=== PATIENT | male | born 1960 | race Caucasian/White ===

== ENCOUNTER 2017-06-18 16:46 | Emergency (ER) | payer OTHER ==
[~2017-06-18] VITALS: Ht 175.3 cm; Wt 95.3 kg
[2017-06-18 16:56] VITALS: BP 153/87; PULSE 77; RESP 16; TEMP 98.1; O2SAT 99
[2017-06-18] MEDS ORDERED: NOVOLOGP2 SQ (17:22)
[2017-06-18] MEDS ORDERED: LANTUS2P SQ (17:22)
[2017-06-18] MEDS ORDERED: METF1000 PO (17:22)
[2017-06-18] MEDS ORDERED: ROBA500T PO (18:08)
--- NOTE | 2017-06-18 18:09 | PD ---
HPI Chief Complaint: Back/ Neck Pain or Injury Time Seen by Provider: 17:34 Travel History International Travel<30 days: No Contact w/Intl Traveler<30days: No Traveled to known affect area: No History of Present Illness HPI 56-year-old male presents to the emergency department complaining of left groin pain after he slipped out of the shower this evening. States he was getting out shower and his leg slipped out and told his groin. Denies head or neck trauma. Denies loss of consciousness, dizziness, headache. Patient states he is able to walk but it is very painful. Says that any movement of the groin causes excruciating, nonradiating pain and requests pain medication today. Patient denies numbness or tingling of the extremity. Denies excessive swelling or ecchymosis. States he took Motrin 800 mg and had mild relief for 2 hours but did not last long. PFSH Past Medical History Diabetes: Yes (type 2) Patient Takes Glucophage: Yes Influenza Vaccination: Yes Past Surgical History Surgical History: No Previous Surgery Social History Alcohol Use: No Tobacco Use: Yes (PACK PER WEEK) Substance Use: No Allergies-Medications (Allergen,Severity, Reaction): Coded Allergies: No Known Allergies (Unverified , 06/18/17) Reported Meds & Prescriptions Reported Meds & Active Scripts Active Robaxin (Methocarbamol) 500 Mg Tab 500 Mg PO TID 5 Days Reported Lantus Inj (Insulin Glargine) 1,000 Unit/10 Ml Vial 10 Units SQ HS Novolog Inj (Insulin Aspart) 1,000 Unit/10 Ml Vial 0 SQ DIRECTED Sliding Scale as directed. Metformin (Metformin HCl) 1,000 Mg Tab 1,000 Mg PO BIDPC Review of Systems Except as stated in HPI: all other systems reviewed are Neg Physical Exam Narrative GENERAL: Well-nourished, well-developed patient. SKIN: Focused skin assessment warm/dry. HEAD: Normocephalic. EYES: No scleral icterus. No injection or drainage. NECK: Supple, trachea midline. No JVD or lymphadenopathy. CARDIOVASCULAR: Regular rate and rhythm without murmurs, gallops, or rubs. RESPIRATORY: Breath sounds equal bilaterally. No accessory muscle use. MUSCULOSKELETAL: No cyanosis, or edema. Left groin evaluated with a male dispatcher relay. No ecchymosis, bulging. TTP to groin area without lymphadenopathy BACK: Nontender without obvious deformity. No CVA tenderness. Data Data Last Documented VS Vital Signs Date Time Temp Pulse Resp B/P (MAP) Pulse Ox O2 Delivery O2 Flow Rate FiO2 06/18/17 19:43 99 06/18/17 19:42 18 06/18/17 16:56 98.1 77 153/87 (109) Orders Orders Orphenadrine Inj (Norflex Inj) (06/18/17 18:15) Ed Discharge Order (06/18/17 18:15) Acetamin-Hydrocod 325-5 Mg ([place] 5-325 (06/18/17 18:45) MDM Medical Decision Making Medical Screen Exam Complete: Yes Emergency Medical Condition: Yes Differential Diagnosis Left groin strain, sprain, rupture Narrative Course 56-year-old male presents to the emergency department complaining of left groin pain after he slipped out of the shower this evening. States he was getting out shower and his leg slipped out and told his groin. Denies head or neck trauma. Denies loss of consciousness, dizziness, headache. Patient states he is able to walk but it is very painful. Says that any movement of the groin causes excruciating, nonradiating pain and requests pain medication today. Patient denies numbness or tingling of the extremity. Denies excessive swelling or ecchymosis. States he took Motrin 800 mg and had mild relief for 2 hours but did not last long. Vital signs stable Physical exam findings consistent with a groin pull I reviewed [facility] and it appears as if he received a hydrocodone prescription on May 25. I asked the patient she had received any pain medication recently and he said no. Patient became very agitated in the emergency department today after informing the patient he will not receive narcotic pain medication. Hydrocodone admission the emergency department. I recommended he follow up with his primary care physician and consider orthopedics for his groin pain. Advised of the usual course of this injury. Reassured patient. Return to the emergency department for worsening or persistent symptoms. Diagnosis Primary Impression: Sprain of groin Qualified Codes: S33.8XXA - Sprain of other parts of lumbar spine and pelvis, initial encounter Referrals: Primary Care Physician Additional Instructions: Use ice or heat for symptom relief. Elevate the joint above the heart to reduce swelling. If symptoms persist or worsen, return to the emergency department. Follow up with your primary care physician within 2 days. Scripts Methocarbamol (Robaxin) 500 Mg Tab 500 MG PO TID for Muscle Spasm for 5 Days, TAB 0 Refills Prov: Hetal Chi 06/18/17 Disposition: 01 DISCHARGE HOME Condition: Stable Hetal Chi Jun 18, 2017 18:09
[2017-06-18] MEDS ORDERED: ORPHENADRINE INJ 60 MG/2 ML AMP IM ONE (18:15)
[2017-06-18] MEDS ORDERED: ACETAMINOPHEN/HYDROcodone 325 MG/5 MG TAB PO ONE (18:45)
[2017-06-18 19:42] VITALS: RESP 18
== END 2017-06-18 19:43 | disposition home or self-care (01) ==
LOC: PHEFT 16:46
DX: S33.8XXA Sprain of other parts of lumbar spine and pelvis, initial encounter (principal); E11.9 Type 2 diabetes mellitus without complications; F17.200 Nicotine dependence, unspecified, uncomplicated; W18.2XXA Fall in (into) shower or empty bathtub, initial encounter; Z79.4 Long term (current) use of insulin; Z79.899 Other long term (current) drug therapy
CPT/HCPCS: 96372; 99284; J2360

== ENCOUNTER 2017-12-17 17:39 | Emergency (ER) | payer OTHER ==
[~2017-12-17] VITALS: Ht 175.3 cm; Wt 87.0 kg
[~2017-12-17 17:39] MED LIST: LANTUS2P SQ; METF1000 PO; NOVOLOGP2 SQ; ROBA500T PO
[2017-12-17 18:00] VITALS: BP 131/74; PULSE 86; RESP 20; TEMP 97.6; O2SAT 98
[2017-12-17 19:46] VITALS: BP 104/70; PULSE 78; RESP 16
[2017-12-17 20:17] LABS: BLOOD, URINE NEG (NEG); GLUCOSE,URINE NEG (NEG); KETONE, URINE NEG (NEG); NITRITE,URINE NEG (NEG); PH, URINE 5.5 (5.0-8.5); URINE COLOR YELLOW (YELLW/STRAW); URINE LEUKOCYTE ESTERASE NEG (NEG)
[2017-12-17 20:18] LABS: AUTOMATED NEUTROPHIL # 11.5 TH/MM3 (1.8-7.7); BASOPHIL # 0.1 TH/MM3 (0-0.2); BASOPHIL % 0.9 % (0.0-2.0); EOSINOPHIL % 0.3 % (0.0-4.0); HEMATOCRIT 47.8 % (39.0-51.0); HEMOGLOBIN 16.5 GM/DL (13.0-17.0); LYMPH % 13.5 % (9.0-44.0); MEAN CELL VOLUME 90.9 FL (80.0-100.0); MEAN CORPUSCULAR HEMOGLOBIN 31.4 PG (27.0-34.0); MEAN CORPUSCULAR HGB CONC 34.5 % (32.0-36.0); MEAN PLATELET VOLUME 8.7 FL (7.0-11.0); MONO % 6.4 % (0.0-8.0); MONOCYTE # 0.9 TH/MM3 (0-0.9); NEUT % 78.9 % (16.0-70.0); PLATELET COUNT 291 TH/MM3 (150-450); RED BLOOD COUNT 5.26 MIL/MM3 (4.50-5.90); RED CELL DISTRIBUTION WIDTH 12.8 % (11.6-17.2); WHITE BLOOD COUNT 14.5 TH/MM3 (4.0-11.0)
[2017-12-17 20:23] LABS: BILIRUBIN, URINE NEG (NEG)
[2017-12-17 20:24] LABS: RBC, URINE 0-2 /hpf (0-3); SQUAMOUS EPITHELIAL CELL URINE 0-5 /hpf (0-5); WBC, URINE 0-2 /hpf (0-5)
[2017-12-17 20:32] LABS: CHLORIDE 98 MEQ/L (98-107); SODIUM (NA) 135 MEQ/L (136-145)
[2017-12-17 20:37] LABS: ALBUMIN 5.4 GM/DL (3.4-5.0); BICARBONATE 21.1 MEQ/L (21.0-32.0); BLOOD UREA NITROGEN 38 MG/DL (7-18); CALCIUM 10.3 MG/DL (8.5-10.1); GLUCOSE,RANDOM 201 MG/DL (74-106)
[2017-12-17 20:40] LABS: ALT (GPT) 124 U/L (12-78); AST (GOT) 67 U/L (15-37)
[2017-12-17 20:41] LABS: GLOMERULAR FILTRATION RATE 24 ML/MIN (>89)
[2017-12-17 20:42] LABS: TOTAL BILIRUBIN ADULT 0.8 MG/DL (0.2-1.0); TOTAL PROTEIN 9.5 GM/DL (6.4-8.2)
[2017-12-17 20:43] LABS: ALKALINE PHOSPHATASE 84 U/L (45-117)
[2017-12-17] MEDS ORDERED: PROCHLORPERAZINE INJ 10 MG/2 ML VIAL IV PUSH ONE (20:45)
[2017-12-17] MEDS: SODIUM CHLOR 0.9% 1000 ML INJ 1,000 ML IV SCH ×2 (20:56→20:57)
[2017-12-17] MEDS ORDERED: KETOROLAC TROMETHAMINE 60 MG/2 ML (IM) VIAL IVP ONE (21:00)
--- NOTE | 2017-12-17 21:51 | PD ---
HPI Chief Complaint: General Weakness Time Seen by Provider: 19:46 Travel History International Travel<30 days: No Contact w/Intl Traveler<30days: No Traveled to known affect area: No History of Present Illness HPI The patient is a 57-year-old male that was out in the sun working and did not drink fluids all morning long until 1 PM. He then vomited multiple times. The patient feels very dehydrated. He also has a bilateral headache, achy type pain of 7/10 of gradual onset. He is still nauseated. His abdominal pain consists mostly of cramping and is mild. The patient does have a history of diabetes which is insulin-dependent. PFSH Past Medical History Diabetes: Yes Patient Takes Glucophage: Yes Tetanus Vaccination: < 5 Years Influenza Vaccination: No Past Surgical History Cholecystectomy: Yes Social History Alcohol Use: No Tobacco Use: No Substance Use: No Allergies-Medications (Allergen,Severity, Reaction): Coded Allergies: No Known Allergies (Unverified , 12/17/17) Reported Meds & Prescriptions Reported Meds & Active Scripts Active Robaxin (Methocarbamol) 500 Mg Tab 500 Mg PO TID 5 Days Reported Lantus Inj (Insulin Glargine) 1,000 Unit/10 Ml Vial 10 Units SQ HS Novolog Inj (Insulin Aspart) 1,000 Unit/10 Ml Vial 0 SQ DIRECTED Sliding Scale as directed. Metformin (Metformin HCl) 1,000 Mg Tab 1,000 Mg PO BIDPC Review of Systems Except as stated in HPI: all other systems reviewed are Neg Physical Exam Narrative GENERAL: The patient appears moderately dehydrated, alert, oriented 3 in slight apparent distress with his headache and nausea. His vital signs show blood pressure 131/74 and are completely normal. SKIN: Focused skin assessment warm/dry. HEAD: Atraumatic. Normocephalic. EYES: Pupils equal and round. No scleral icterus. No injection or drainage. ENT: No nasal bleeding or discharge. Mucous membranes pink and moist. NECK: Trachea midline. No JVD. CARDIOVASCULAR: Regular rate and rhythm. No murmur appreciated. RESPIRATORY: No accessory muscle use. Clear to auscultation. Breath sounds equal bilaterally. GASTROINTESTINAL: Abdomen soft, with minimal discomfort in the lower quadrants, left greater than right to direct palpation, nondistended. Hepatic and splenic margins not palpable. No guarding or rebound is present. MUSCULOSKELETAL: No obvious deformities. No clubbing. No cyanosis. No edema. NEUROLOGICAL: Awake and alert. No obvious cranial nerve deficits. Motor grossly within normal limits. Normal speech. PSYCHIATRIC: Appropriate mood and affect; insight and judgment normal. Data Data Last Documented VS Vital Signs Date Time Temp Pulse Resp B/P (MAP) Pulse Ox O2 Delivery O2 Flow Rate FiO2 12/17/17 19:46 Room Air 12/17/17 19:46 78 16 104/70 (81) 12/17/17 18:00 97.6 98 Orders Orders Complete Blood Count With Diff (12/17/17 20:04) Comprehensive Metabolic Panel (12/17/17 20:04) Urinalysis - C+S If Indicated (12/17/17 20:04) Sodium Chlor 0.9% 1000 Ml Inj (Ns 1000 M (12/17/17 20:45) Prochlorperazine Inj (Compazine Inj) (12/17/17 20:45) Ketorolac Inj (Toradol Inj) (12/17/17 21:00) Labs Laboratory Tests Test 12/17/17 20:11 White Blood Count 14.5 TH/MM3 Red Blood Count 5.26 MIL/MM3 Hemoglobin 16.5 GM/DL Hematocrit 47.8 % Mean Corpuscular Volume 90.9 FL Mean Corpuscular Hemoglobin 31.4 PG Mean Corpuscular Hemoglobin Concent 34.5 % Red Cell Distribution Width 12.8 % Platelet Count 291 TH/MM3 Mean Platelet Volume 8.7 FL Neutrophils (%) (Auto) 78.9 % Lymphocytes (%) (Auto) 13.5 % Monocytes (%) (Auto) 6.4 % Eosinophils (%) (Auto) 0.3 % Basophils (%) (Auto) 0.9 % Neutrophils # (Auto) 11.5 TH/MM3 Lymphocytes # (Auto) 2.0 TH/MM3 Monocytes # (Auto) 0.9 TH/MM3 Eosinophils # (Auto) 0.0 TH/MM3 Basophils # (Auto) 0.1 TH/MM3 CBC Comment DIFF FINAL Differential Comment Urine Color YELLOW Urine Turbidity CLEAR Urine pH 5.5 Urine Specific [place] 1.025 Urine Protein TRACE mg/dL Urine Glucose (UA) NEG mg/dL Urine Ketones NEG mg/dL Urine Occult Blood NEG Urine Nitrite NEG Urine Bilirubin NEG Urine Urobilinogen 0.2 MG/DL Urine Leukocyte Esterase NEG Urine RBC 0-2 /hpf Urine WBC 0-2 /hpf Urine Squamous Epithelial Cells 0-5 /hpf Urine Bacteria NONE /hpf Urine Hyaline Casts 3-5 /lpf Urine Waxy Casts /lpf Microscopic Urinalysis Comment CULT NOT INDICATED Blood Urea Nitrogen 38 MG/DL Creatinine 2.80 MG/DL Random Glucose 201 MG/DL Total Protein 9.5 GM/DL Albumin 5.4 GM/DL Calcium Level 10.3 MG/DL Alkaline Phosphatase 84 U/L Aspartate Amino Transf (AST/SGOT) 67 U/L Alanine Aminotransferase (ALT/SGPT) 124 U/L Total Bilirubin 0.8 MG/DL Sodium Level 135 MEQ/L Potassium Level 6.0 MEQ/L Chloride Level 98 MEQ/L Carbon Dioxide Level 21.1 MEQ/L Anion Gap 16 MEQ/L Estimat Glomerular Filtration Rate 24 ML/MIN MDM Medical Decision Making Medical Screen Exam Complete: Yes Emergency Medical Condition: Yes Medical Record Reviewed: Yes Interpretation(s) The CBC shows a white count of 14,500 with 79% neutrophils. The complete metabolic profile shows a BUN of 38, creatinine 2.8 with GFR of 24 and glucose 201 and total protein of 9.5 and albumin 5.4 with calcium 10.3 and SGOT of 67 and GPT of 124 and sodium 135 and potassium 6.0 with anion gap of 16. The urinalysis is normal and cultures not indicated. Differential Diagnosis Moderate dehydration, prerenal azotemia, renal failure/insufficiency, electrolyte disorder, hyper/hypocalcemia Narrative Course It is now 9:46 PM and the patient feels much better. The multiple abnormalities in the complete metabolic profile appeared to be due to prerenal azotemia from dehydration. Impression: Dehydration, gastritis Plan: The patient is given Compazine and told increase liquids and follow-up as soon as possible with a primary care physician. Diagnosis Primary Impression: Moderate dehydration Additional Impression: Gastritis Additional Instructions: As we discussed, you need to follow-up with a primary care physician, hopefully an toll bridge attendant. You need to continue to hydrate yourself. You may have a gastritis which contributed to the dehydration. This may be playing vomited. It could also have been caused by a heat syndrome. We will write you a work excuse for tomorrow and you should rest and catch up with your fluids. Med/Other Pt SpecificInfo: Prescription(s) given Scripts Prochlorperazine Maleate (Prochlorperazine Maleate) 10 Mg Tab 10 MG PO Q6H Y for NAUSEA OR VOMITING, #20 TAB 0 Refills Prov: Dutch Sheikh MD 12/17/17 Disposition: 01 DISCHARGE HOME Condition: Stable Dutch Sheikh MD Dec 17, 2017 21:51
[2017-12-17] MEDS ORDERED: PROC10TA PO (21:54)
[2017-12-17 22:10] VITALS: BP 129/74; TEMP 98.3
== END 2017-12-17 22:11 | disposition home or self-care (01) ==
LOC: PHED 17:39
DX: E86.0 Dehydration (principal); K29.70 Gastritis, unspecified, without bleeding; E11.9 Type 2 diabetes mellitus without complications; Z79.4 Long term (current) use of insulin
CPT/HCPCS: 80053; 81001; 85025; 96361; 96374; 96375; 99284; J0780; J1885; J7030